=== PATIENT | male | born 1990 | race Caucasian/White ===

== ENCOUNTER 2017-01-18 11:11 | Emergency (ER) | payer OTHER ==
[~2017-01-18] VITALS: Ht 172.7 cm; Wt 69.0 kg
[2017-01-18 11:17] VITALS: BP 119/78
[2017-01-18] MEDS ORDERED: MULT-1297 PO (11:19)
[2017-01-18] MEDS ORDERED: LIDOCAINE HCL 5% TRANSDERMAL PATCH TD ONE (12:15)
[2017-01-18] MEDS ORDERED: KETOROLAC TROMETHAMINE 30 MG/ML VIAL IM ONE (12:15)
== END 2017-01-18 12:39 | disposition home or self-care (01) ==
LOC: EDUNIT# 11:11 → EMS 11:15
DX: M54.5 Low back pain (principal); F12.90 Cannabis use, unspecified, uncomplicated
CPT/HCPCS: 96372; 99283; J1885